=== PATIENT | female | born 1955 | race Caucasian/White ===

== ENCOUNTER 2017-04-29 19:35 | Emergency (ER) | payer OTHER ==
[2017-04-29] MEDS ORDERED: ASPIRIN 81 MG TABLET, CHEWABLE PO ONE (21:52)
--- NOTE | 2017-04-29 22:16 | ER Document Report ---
ED General - General Chief Complaint: Chest Pain Stated Complaint: CHEST PAIN Time Seen by Provider: 04/29/17 22:15 Notes: Patient is a 61-year-old female presents with complaint of upper abdominal pain and vomiting. Her chest now also mentions back pain the patient says this is her chronic back pain and is unchanged. She says this morning she went to see her doctor for her chronic back pain. She received a shot and was started on Lyrica. She had brunch around 11 AM. Around 6 PM the pain started she began vomiting. She had somewhat similar pains when she was started on meloxicam and it caused irritation to her stomach lining over a year ago. She denies any recent abdominal surgeries. She feels her gallbladder. She denies any alcohol use. She does smoke. Referred chief complaint note mentions chest pain. When I asked the patient where her chest pain is, she points at her epigastrium of her abdomen. She denies any blood in her emesis. She said there was some pink colored to 1 emesis but this was also after drinking grapefruit. She denies any black or tarry stools or blood in her stool. TRAVEL OUTSIDE OF THE [place] IN LAST 30 DAYS: No - Related Data Allergies/Adverse Reactions: hydrocodone Allergy (Verified 04/29/17 19:53) oxycodone Allergy (Verified 04/29/17 19:53) Past Medical History - Social History Smoking Status: Current Every Day Smoker Frequency of alcohol use: None Drug Abuse: None Family History: Reviewed & Not Pertinent Patient has suicidal ideation: No Patient has homicidal ideation: No - Past Medical History Cardiac Medical History: Denies: Hx Coronary Artery Disease, Hx Heart Attack, Hx Hypertension Pulmonary Medical History: Reports: Hx Asthma - as child Denies: Hx Bronchitis, Hx COPD, Hx Pneumonia Neurological Medical History: Denies: Hx Cerebrovascular Accident, Hx Seizures Renal/ Medical History: Denies: Hx Peritoneal Dialysis Musculoskeltal Medical History: Denies Hx Arthritis Past Surgical History: Reports: Hx Hysterectomy, Hx Kidney (Renal Surgery) - BLADDER. Denies: Hx Pacemaker - Immunizations Hx Diphtheria, Pertussis, Tetanus Vaccination: No Review of Systems - Review of Systems Notes: My Normal Review Basic REVIEW OF SYSTEMS: CONSTITUTIONAL : Denies fever, chills, or sweats. Denies recent illness. EENT: Denies eye, ear, throat, or mouth pain or symptoms. Denies nasal or sinus congestion. CARDIOVASCULAR: Epigastric pain RESPIRATORY: Denies cough, cold, or chest congestion. Denies shortness of breath, difficulty breathing, or wheezing. GASTROINTESTINAL: Upper abdominal pain. Has vomiting. GENITOURINARY: Denies difficulty urinating, painful urination, burning, frequency, or blood in urine. MUSCULOSKELETAL: Denies neck or back pain or joint pain or swelling. SKIN: Denies rash or skin lesions. NEUROLOGICAL: Denies altered mental status or loss of consciousness. Denies headache. Denies weakness or paralysis or loss of use of either side. Denies problems with gait or speech. Denies sensory or motor loss. ALL OTHER SYSTEMS REVIEWED AND NEGATIVE. Physical Exam - Vital signs Vitals: Temp Pulse Resp BP Pulse Ox 97.5 F 70 21 H 142/77 H 94 04/29/17 19:55 04/29/17 19:55 04/29/17 19:55 04/29/17 19:55 04/29/17 19:55 - Notes Notes: General Appearance: Well nourished, alert, cooperative, no acute distress, mild to moderate obvious discomfort. Vitals: reviewed, See vital signs table. Head: no swelling or tenderness to the head Eyes: PERRL, EOMI, Conjuctiva clear Mouth: No decreasd moisture Lungs: No wheezing, No rales, No rhonci, No accessory muscle use, good air exchange bilaterally. Heart: Normal rate, Regular rythm, No murmur, no rub Abdomen: Normal BS, soft, No rigidity, mild reprosucible abdominal tenderness over epigastrum and LUQ , No guarding, no rebound, no abdominal masses, no organomegaly Extremities: strength 5/5 in all extremities, good pulses in all extremities, no swelling or tenderness in the extremities, no edema. Skin: warm, dry, appropriate color, no rash Neuro: speech clear, oriented x 3, normal affect, responds appropriately to questions. Course - Re-evaluation Re-evalutation: 04/30/17 00:59 Patient says that the pain medicine did initially help with her abdominal pain but now starting to come back. She still has a back pain which is chronic. She still has some nausea. 04/30/17 02:48 Patient's pain is improving. She looks well. Ultrasound does not appear to show any evidence of cholecystitis. This does show a possible liver mass. I will obtain a CT scan to investigate further. 04/30/17 07:11 Patient's pain is much improved. She looks well. Even though her pain was improved and was still concerned that she had a white count 22,[address] scan does show some colitis. There is no abscess or evidence of perforation. I will place her on Cipro and Flagyl. She has mentioned several times that she has had a stuffy reaction with certain new medications. The pain started shortly after starting the Lyrica. I informed her to hold off on the Lyrica. Not convinced this because her pain however with the patient's history we will hold taking this medication any further at this time. Encouraged follow-up closely with her primary care doctor. Informed her she must return to ER immediately if she has fevers, worsening pain , intractable vomiting, or feels unwell. Patient agrees with plan will be discharged home. Dictation of this chart was performed using voice recognition software; therefore, there may be some unintended grammatical errors. - Vital Signs Vital signs: Temp Pulse Resp BP Pulse Ox 97.5 F 70 16 134/95 H 93 04/29/17 19:55 04/29/17 19:55 04/30/17 04:33 04/30/17 04:33 04/30/17 03:01 - Laboratory Result Diagrams: 04/29/17 21:40 04/29/17 21:40 Laboratory results interpreted by me: 04/29/17 04/29/17 04/29/17 21:40 21:40 23:57 WBC 22.8 H Seg Neuts % (Manual) 84 H Lymphocytes % (Manual) 12 L Abs Neuts (Manual) 19.2 H Potassium 5.1 H BUN 26 H Glucose 124 H Direct Bilirubin 0.5 H AST 38 H Urine Ketones TRACE H Urine Urobilinogen 2.0 H Urine Ascorbic Acid 20 H - EKG Interpretation by Me Additional EKG results interpreted by me: 04/29/17 22:16 EKG is reviewed and interpreted by me. EKG shows normal sinus rhythm with rate of [address] segment elevation or depression. No ischemic T-wave inversions. VT interval, QRS duration, QTc intervals are within normal range. No old EKG available for comparison. Discharge - Discharge Clinical Impression: Colitis Leukocytosis Qualifiers: Leukocytosis type: unspecified Qualified Code(s): D72.829 - Elevated white blood cell count, unspecified Vomiting Qualifiers: Vomiting type: unspecified Vomiting Intractability: unspecified Nausea presence : unspecified Qualified Code(s): R11.10 - Vomiting, unspecified Condition: Good Disposition: HOME, SELF-CARE Additional Instructions: Please take the antibiotics as prescribed. Do not drink any alcohol when taking the antibiotics or you will become very sick. Please stop taking the Lyrica for now. Please follow up with your doctor in 1-2 days for reevaluation. Please return to the ER immediately if you have worsening pain, recurrent vomiting, any fevers, or if you feel that you are worsening in any way. Prescriptions: Ciprofloxacin HCl [Cipro 500 mg Tablet] 500 mg PO BID #10 tablet Dicyclomine HCl [Bentyl 20 mg Tablet] 20 mg PO QID #40 tablet Metronidazole [Flagyl 500 mg Tablet] 500 mg PO Q6H #28 tablet Ondansetron [Zofran Odt 4 mg Tablet] 1 tab PO Q4H PRN #15 tab.rapdis PRN Reason: For Nausea/Vomiting Forms: Return to Work
[2017-04-29 22:22] LABS: HEMATOCRIT 46.3 % (36.0-47.0); HEMOGLOBIN 14.9 g/dL (12.0-15.5); HGB HCT DIFFERENCE -1.6; MEAN CORPUSCULAR HEMOGLOBIN 30.8 pg (27.0-33.4); MEAN CORPUSCULAR HGB CONC 32.1 g/dL (32.0-36.0); MEAN CORPUSCULAR VOLUME 96 fl (80-97); RED BLOOD COUNT 4.83 10^6/uL (3.72-5.28); RED CELL DISTRIBUTION WIDTH 13.8 % (11.5-14.0); WHITE BLOOD COUNT 22.8 10^3/uL (4.0-10.5)
--- NOTE | 2017-04-29 22:23 | RADIOLOGY REPORT (SQ) ---
EXAM DESCRIPTION: CHEST SINGLE VIEW COMPLETED DATE/TIME: 04/29/2017 10:13 pm REASON FOR STUDY: CP COMPARISON: 07/01/2011 EXAM PARAMETERS: NUMBER OF VIEWS: One view. TECHNIQUE: Single frontal radiographic view of the chest acquired. RADIATION DOSE: NA LIMITATIONS: None. FINDINGS: LUNGS AND PLEURA: No acute opacities, masses or pneumothorax. No pleural effusion. MEDIASTINUM AND HILAR STRUCTURES: Stable. HEART AND VASCULAR STRUCTURES: Heart normal in size. Normal vasculature. BONES: No acute findings. HARDWARE: None in the chest. OTHER: No other significant finding. IMPRESSION: NO ACUTE RADIOGRAPHIC FINDING IN THE CHEST. TECHNICAL DOCUMENTATION: JOB ID: [id number]
[2017-04-29] MEDS ORDERED: ONDANSETRON HCL INJ/PF 4 MG/2 ML SDV IV ONE (22:24)
[2017-04-29] MEDS ORDERED: NORMAL SALINE 500 ML IV ONE (22:24)
[2017-04-29] MEDS ORDERED: FENTANYL CITRATE INJ/PF 100 MCG/2 ML AMPUL IV ONE (22:24)
[2017-04-29 22:38] LABS: BASOPHILS % (MANUAL) 0 % (0-2); EOSINOPHILS % (MANUAL) 0 % (0-6); LYMPHOCYTES % (MANUAL) 12 % (13-45); TOTAL CELLS COUNTED 100
[2017-04-29 22:41] LABS: RBC MORPHOLOGY COMMENT NORMO-CYTIC/CHROMIC; TOXIC GRANULATION SLIGHT
[2017-04-29 22:43] LABS: ALANINE AMINOTRANSFERASE 32 U/L (9-52); ALBUMIN 4.7 g/dL (3.5-5.0); ALKALINE PHOSPHATASE 117 U/L (38-126); ANION GAP 13 (5-19); ASPARTATE AMINO TRANSFERASE 38 U/L (14-36); BILIRUBIN,DIRECT 0.5 mg/dL (0.0-0.4); BILIRUBIN,TOTAL 1.1 mg/dL (0.2-1.3); BLOOD UREA NITROGEN 26 mg/dL (7-20); CALCIUM 9.8 mg/dL (8.4-10.2); CARBON DIOXIDE 25 mmol/L (22-30); CHLORIDE 103 mmol/L (98-107); CREATINE KINASE 83 U/L (30-135); CREATININE RESULT 0.81 mg/dL (0.52-1.25); GLUCOSE 124 mg/dL (75-110); POTASSIUM 5.1 mmol/L (3.6-5.0); SODIUM 140.7 mmol/L (137-145); TOTAL PROTEIN 7.9 g/dL (6.3-8.2)
[2017-04-29 22:53] LABS: CREATINE KINASE MB 1.34 ng/mL (<4.55)
[2017-04-29 22:54] LABS: TROPONIN I < 0.012 ng/mL
[2017-04-30] MEDS ORDERED: PROMETHAZINE HCL INJ 50 MG/1 ML VIAL IM ONE (00:58)
[2017-04-30] MEDS ORDERED: FENTANYL CITRATE INJ/PF 100 MCG/2 ML AMPUL IV ONE (00:58)
[2017-04-30 01:11] LABS: APPEARANCE,URINE CLEAR; BILIRUBIN,URINE NEGATIVE (NEGATIVE); GLUCOSE, URINE NEGATIVE (NEGATIVE); KETONES,URINE TRACE mg/dL (NEGATIVE); LEUKOCYTE ESTERASE,URINE NEGATIVE (NEGATIVE); NITRITE,URINE NEGATIVE (NEGATIVE); PROTEIN,URINE NEGATIVE (NEGATIVE); URINE SPECIFIC GRAVITY 1.028
[2017-04-30] MEDS ORDERED: PROMETHAZINE HCL INJ 25 MG/1 ML VIAL ONE (02:00)
[2017-04-30] MEDS ORDERED: NORMAL SALINE 500 ML IV ONE (02:48)
--- NOTE | 2017-04-30 03:11 | RADIOLOGY REPORT (SQ) ---
EXAM DESCRIPTION: U/S ABDOMEN LTD W/DOPPLER COMPLETED DATE/TIME: 04/30/2017 2:46 am REASON FOR STUDY: upper abdominal pain, leukocytosis COMPARISON: CT, 06/13/2011. TECHNIQUE: Dynamic and static grayscale images acquired of the abdomen and recorded on PACS. Arnoldo shital selected color Doppler and spectral images recorded. LIMITATIONS: CT, 06/13/2011 None. FINDINGS: PANCREAS: No masses. Visualized pancreatic duct normal caliber. LIVER: Moderate hepatic steatosis with likely focal fat sparing measuring up to 4.3 cm of the left he patic lobe consistent with prior CT from 2010. LIVER VASCULATURE: Normal directional flow of the main portal vein and hepatic veins. GALLBLADDER: No stones. Normal wall thickness. No pericholecystic fluid. ULTRASOUND-DETECTED BAH'S SIGN: Negative. INTRAHEPATIC DUCTS AND COMMON DUCT: 0.2 cm diameter CBD and intrahepatic ducts normal caliber. No jose manuel ling defects. INFERIOR VENA CAVA: Normal flow. AORTA: No aneurysm. RIGHT KIDNEY: Normal size. Normal echogenicity. No solid or suspicious masses. No hydronephrosis. No calcifications. PERITONEAL AND RIGHT PLEURAL SPACE: No ascites or effusions. OTHER: No other significant findings. IMPRESSION: Chronic hepatic steatosis with likely focal sparing ; further confirmation with contrast MRI or CT of the liver recommended for this symptomatic patient. TECHNICAL DOCUMENTATION: JOB ID: [id number] [employer]- All Rights Reserved
--- NOTE | 2017-04-30 03:57 | RADIOLOGY REPORT (SQ) ---
EXAM DESCRIPTION: CT ABD/PELVIS WITH IV ONLY COMPLETED DATE/TIME: 04/30/2017 3:35 am REASON FOR STUDY: abdominal pain COMPARISON: Ultrasound, 04/30/2017. CT, 06/13/2011. TECHNIQUE: CT scan of the abdomen and pelvis performed using helical scanning technique with dynamic intravenous contrast injection. No oral contrast. Images reviewed with lung, soft tissue, and bone windows. Reconstructed coronal and sagittal MPR images reviewed. Delayed images for evaluation of the urinary system also acquired. All images stored on PACS. All CT scanners at this facility use dose modulation, iterative reconstruction, and/or weight based d osing when appropriate to reduce radiation dose to as low as reasonably achievable (ALARA). [facility]: Dose Right [facility]: CareDose [facility]: Dose Right [facility]: Teradose 4D [facility]: Data Impact CONTRAST TYPE AND DOSE: contrast/concentration: Isovue 370.00 mg/ml; Total Contrast Delivered: 97.0 ml; Total Saline Delivered: 72.0 ml RENAL FUNCTION: Creatinine 0.8 RADIATION DOSE: Up-to-date CT equipment and radiation dose reduction techniques were employed. CTDIv ol: 15.3 mGy. DLP: 1851 mGy-cm.. LIMITATIONS: None. FINDINGS: LOWER CHEST: Small atelectasis or scar of bilateral lower lungs. Mild nonspecific interst itial and ground-glass markings may indicate chronic interstitial lung disease. LIVER: Normal size. No masses. No dilated ducts. Hepatic steatosis without suspicious interval mesa ge compared with prior CT, 06/13/2011. SPLEEN: Normal size. No focal lesions. PANCREAS: No masses. No significant calcifications. No adjacent inflammation or peripancreatic fluid collections. Pancreatic duct not dilated. GALLBLADDER: No identified stones by CT criteria. No inflammatory changes to suggest cholecystitis. ADRENAL GLANDS: No significant masses or asymmetry. RIGHT KIDNEY AND URETER: No solid masses. No significant calcifications. No hydronephrosis or hyd roureter. LEFT KIDNEY AND URETER: No solid masses. No significant calcifications. No hydronephrosis or hydr oureter. AORTA AND VESSELS: No aneurysm. No dissection. Renal arteries, SMA, celiac without stenosis. RETROPERITONEUM: No retroperitoneal adenopathy, hemorrhage or masses. BOWEL AND PERITONEAL CAVITY: Moderate diverticulosis. Moderate diffuse bowel wall thickening of the transverse and left colon, new compared with prior CT from May 2011. APPENDIX: Surgically absent. PELVIS: No mass or free fluid. Normal bladder. ABDOMINAL WALL: No masses. No hernias. BONES: Codm-sj-jrvzbjzi disc desiccation between the L4 and S1 levels. Small to moderate disc bulges between the L4 and S1 level. OTHER: No other significant finding. IMPRESSION: Moderate colitis pattern of the transverse and left colon. Moderate colonic diverticulo sis. TECHNICAL DOCUMENTATION: JOB ID: [id number] Quality ID # [id number]: Final reports with documentation of one or more dose reduction techniques (e.g., Au tomated exposure control, adjustment of the mA and/or kV according to patient size, use of iterative reconstruction technique) 2010 [employer]- All Rights Reserved
[2017-04-30] MEDS ORDERED: CIPROFLOXACIN HCL 500 MG TABLET PO ONE (04:20)
[2017-04-30] MEDS ORDERED: METRONIDAZOLE 500 MG TABLET PO ONE (04:20)
[2017-04-30 04:38] VITALS: BP 134/95
--- NOTE | 2017-04-30 07:59 | EKG REPORT ---
SEVERITY:- BORDERLINE ECG - SINUS RHYTHM PROBABLE LEFT ATRIAL ABNORMALITY : Confirmed by: Margarito Lucas MD 30-Apr-2017 07:58:15
== END 2017-04-30 04:40 | disposition home or self-care (01) ==
LOC: ER 19:35
DX: K52.9 Noninfective gastroenteritis and colitis, unspecified (principal); D72.829 Elevated white blood cell count, unspecified; R10.10 Upper abdominal pain, unspecified; R11.10 Vomiting, unspecified; F17.200 Nicotine dependence, unspecified, uncomplicated; G89.29 Other chronic pain; M54.9 Dorsalgia, unspecified; Z88.6 Allergy status to analgesic agent; Z90.710 Acquired absence of both cervix and uterus
CPT/HCPCS: 93005; 96376; 99285; 96361; 96374; 96375; 36415; 82553; 82550; 83690; 85025; 80053; 81001; 84484; 71010; 76705; 93976; 74177; 93010; J3010 ×2; J2550; J2405; J7040 ×2